=== PATIENT | male | born 2000 | race Two or more races ===

== ENCOUNTER 2023-12-18 15:19 | Emergency (ER) | payer MEDICAID, OTHER ==
[~2023-12-18] VITALS: Ht 175.3 cm; Wt 74.6 kg
[2023-12-18] MEDS ORDERED: CYCL-837 PO (18:33)
[2023-12-18] MEDS ORDERED: IBUP-1456 PO (18:33)
[2023-12-18 18:35] VITALS: BP 179/62; PULSE 68; RESP 18; TEMP 98; O2SAT 96
[2023-12-18] MEDS: KETOROLAC TROMETH 60MG/2ML VIAL IM ONE (18:39)
== END 2023-12-18 18:44 | disposition home or self-care (01) ==
LOC: ER 15:19
DX: S39.012A Strain of muscle, fascia and tendon of lower back, initial encounter (principal); Z79.899 Other long term (current) drug therapy; X50.0XXA Overexertion from strenuous movement or load, initial encounter; Y93.89 Activity, other specified; Y92.89 Other specified places as the place of occurrence of the external cause; Y99.0 Civilian activity done for income or pay
CPT/HCPCS: 96372; 99283; J1885